=== PATIENT | female | born 1985 | race Caucasian/White ===

== ENCOUNTER 2016-10-10 23:59 | Emergency (ER) | payer OTHER ==
[~2016-10-10] VITALS: Ht 149.9 cm; Wt 45.0 kg
[~2016-10-10 23:59] MED LIST: BACL10TA PO; DICL75 PO
[2016-10-11 00:02] VITALS: BP 133/83; PULSE 94; RESP 16; TEMP 97.5; O2SAT 100
[2016-10-11] MEDS ORDERED: DIAZEPAM 5 MG TAB PO ONE (01:45)
[2016-10-11] MEDS ORDERED: ONDANSETRON ODT 4 MG TAB PO ONE (02:30)
[2016-10-11 02:35] LABS: AMPHETAMINE, URINE NEG (NEG); BARBITURATES, URINE NEG (NEG); COCAINE, URINE NEG (NEG)
[2016-10-11] MEDS ORDERED: ZOFR4TAB3 SL (03:00)
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
== END 2016-10-11 04:05 | disposition home or self-care (01) ==
LOC: NEPC 23:59
DX: G47.00 Insomnia, unspecified (principal); T43.601A Poisoning by unspecified psychostimulants, accidental (unintentional), initial encounter; F41.9 Anxiety disorder, unspecified; R63.0 Anorexia; Z72.0 Tobacco use
CPT/HCPCS: 80307; 99283

== ENCOUNTER 2016-10-11 15:43 | Emergency (ER) | payer SELFPAY ==
[~2016-10-11] VITALS: Ht 148.6 cm; Wt 43.0 kg
[~2016-10-11 15:43] MED LIST changes: +ZOFR4TAB3 SL
[2016-10-11 15:44] VITALS: BP 127/77; PULSE 112; RESP 14; TEMP 97.9; O2SAT 100
[2016-10-11 17:20] VITALS: BP 114/76; PULSE 78; RESP 18; O2SAT 100
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
[2016-10-11] MEDS ORDERED: SODIUM CHLOR 0.9% 1000 ML INJ 1,000 ML IV ONE (17:30)
[2016-10-11] MEDS ORDERED: LORazepam 2 MG TAB PO ONE (17:30)
[2016-10-11] MEDS ORDERED: HALOPERIDOL 5 MG TAB PO ONE (17:30)
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
[2016-10-11 17:36] LABS: AUTOMATED NEUTROPHIL # 8.6 TH/MM3 (1.8-7.7); BASOPHIL # 0.1 TH/MM3 (0-0.2); BASOPHIL % 0.5 % (0.0-2.0); EOSINOPHIL % 0.3 % (0.0-4.0); HEMATOCRIT 37.8 % (35.0-46.0); HEMO FLAGS DIFF FINAL; LYMPH % 13.6 % (9.0-44.0); LYMPHOCYTE # 1.5 TH/MM3 (1.0-4.8); MEAN CELL VOLUME 82.4 FL (80.0-100.0); MEAN CORPUSCULAR HEMOGLOBIN 28.2 PG (27.0-34.0); MEAN CORPUSCULAR HGB CONC 34.2 % (32.0-36.0); MONO % 8.7 % (0.0-8.0); NEUT % 76.9 % (16.0-70.0); PLATELET COUNT 410 TH/MM3 (150-450); RED BLOOD COUNT 4.59 MIL/MM3 (4.00-5.30); RED CELL DISTRIBUTION WIDTH 12.8 % (11.6-17.2); WHITE BLOOD COUNT 11.2 TH/MM3 (4.0-11.0)
[2016-10-11 17:37] LABS: BACTERIA, URINE RARE /hpf; BLOOD, URINE TRACE (NEG); COMMENT (UR) CULT NOT INDICATED; CULTURE IF INDICATED CULT NOT INDICATED; GLUCOSE,URINE NEG (NEG); KETONE, URINE 150 mg/dL (NEG); MUCUS URINE FEW /lpf (OCC); NITRITE,URINE NEG (NEG); PH, URINE 5.5 (5.0-8.5); SQUAMOUS EPITHELIAL CELL URINE 9 /hpf (0-5); URINE COLOR YELLOW (YELLW/STRAW)
[2016-10-11 18:04] LABS: ALT (GPT) 34 U/L (10-53); ANION GAP 12 MEQ/L (5-15); AST (GOT) 44 U/L (15-37); BICARBONATE 23.8 MEQ/L (21.0-32.0); BLOOD UREA NITROGEN 16 MG/DL (7-18); CHLORIDE 104 MEQ/L (98-107); GLOMERULAR FILTRATION RATE 74 ML/MIN (>89); POTASSIUM 3.6 MEQ/L (3.5-5.1); SODIUM (NA) 140 MEQ/L (136-145)
[2016-10-11 18:14] LABS: ALKALINE PHOSPHATASE 66 U/L (45-117); TOTAL BILIRUBIN ADULT 0.8 MG/DL (0.2-1.0)
--- NOTE | 2016-10-11 18:33 | RADRPT ---
EXAM DATE/TIME: 10/11/2016 18:03 [facility] COMPARISON: CT BRAIN W/O CONTRAST, October 13, 2011, 6:04. INDICATIONS : Altered mental status; paranoid. RADIATION DOSE: 35.23 CTDIvol (mGy) MEDICAL HISTORY : None SURGICAL HISTORY : None. ENCOUNTER: Initial ACUITY: 1 day PAIN SCALE: 0/10 LOCATION: cranial TECHNIQUE: Multiple contiguous axial images were obtained of the head. Using automated exposure control and adj ustment of the mA and/or kV according to patient size, radiation dose was kept as low as reasonably a chievable to obtain optimal diagnostic quality images. FINDINGS: CEREBRUM: The ventricles are normal for age. No evidence of midline shift, mass lesion, hemorrhage or acute in farction. No extra-axial fluid collections are seen. POSTERIOR FOSSA: The cerebellum and brainstem are intact. The 4th ventricle is midline. The cerebellopontine angle i s unremarkable. EXTRACRANIAL: The visualized portion of the orbits is intact. SKULL: The calvaria is intact. No evidence of skull fracture. CONCLUSION: Unremarkable noncontrast CT. Study is degraded by motion artifact. Brian Islas MD on October 11, 2016 at 18:29 Board Certified Radiologist. This report was verified electronically.
[2016-10-11 20:28] VITALS: BP 92/50; PULSE 101; RESP 16; O2SAT 98
[2016-10-12 02:27] VITALS: BP 101/50; PULSE 80; RESP 18; O2SAT 97
[2016-10-12 06:24] VITALS: BP 101/51; PULSE 71; RESP 18; O2SAT 99
--- NOTE | 2016-10-12 20:03 | EKG ---
Date Performed: 10/11/2016 Time Performed: 19:17:44 PTAGE: 31 years EKG: SINUS TACHYCARDIA ABNORMAL RHYTHM ECG NO PREVIOUS TRACING DOCTOR: Mahin Kumar Interpretating Date/Time 10/12/2016 20:02:29
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
== END 2016-10-12 19:01 | disposition home or self-care (01) ==
LOC: NEPC 15:43 → NEPJ 10-12 19:01
DX: F29 Unspecified psychosis not due to a substance or known physiological condition (principal); G47.00 Insomnia, unspecified; Z72.0 Tobacco use; R94.31 Abnormal electrocardiogram [ECG] [EKG]
CPT/HCPCS: 70450; 80053; 81001; 84443; 84703; 85025; 93005; 96360; 99284; J7030